=== PATIENT | male | born 1985 | race American Indian/Alaskan Native ===

== ENCOUNTER 2021-10-11 08:53 | Emergency (ER) | payer SELFPAY ==
[2021-10-11] MEDS ORDERED: SULFAMETHOXAZOLE/TRIMETHOPRIM 800/160MG DS TAB PO ONE (09:27)
[2021-10-11] MEDS ORDERED: ACETAMINOPHEN W/CODEINE 300-30 MG TAB PO ONE (09:27)
[2021-10-11] MEDS ORDERED: KETOROLAC 10 MG TAB PO ONE (09:27)
--- NOTE | 2021-10-11 09:41 | Emergency Department Report ---
Upper Extremity - HPI Chief Complaint: Extremity Injury, Upper Stated Complaint: SWOLLEN FINGER/WRIST PAIN Time Seen by Provider: 10/11/21 09:13 Upper Extremity: Right Ring Finger Occurred When: 3 Days Mechanism: Other (History of nail biting) Severity: severe Symptoms: Yes Pain with Movement, Yes Limited Range of Movement, Yes Swelling, No Deformity, No Numbness, No Weakness, No Bruising/Ecchymosis, No Laceration or Abrasion ED Review of Systems ROS: Stated complaint: SWOLLEN FINGER/WRIST PAIN Other details as noted in HPI Comment: All other systems reviewed and negative Constitutional: denies: chills, fever Respiratory: denies: shortness of breath, SOB with exertion, SOB at rest Cardiovascular: denies: chest pain, palpitations, dyspnea on exertion Gastrointestinal: denies: abdominal pain, nausea, vomiting Skin: denies: rash, lesions Neurological: denies: headache, weakness, numbness, paresthesias ED Past Medical Hx - Past Medical History Previous Medical History?: No - Medications Home Medications: Home Medications Medication Instructions Recorded Confirmed Last Taken Type Naproxen [Naprosyn] 500 mg PO BID #14 tab 10/11/21 Unknown Rx Sulfamethoxazole/Trimethoprim 1 each PO BID #14 tab 10/11/21 Unknown Rx [Bactrim DS TAB] Upper Extremity Exam - Exam General: Vital signs noted. No distress. Alert and acting appropriately. Head and Torso: No Neck Tenderness, No Chest/Lungs Abnormality, No Abdominal Tenderness, No Back Tenderness Shoulder Exam: Yes Normal Range of Motion in Shoulder, No Shoulder Tenderness, No Clavicle Tenderness, No Shoulder Deformity, No AC Joint Tenderness Forearm: No Forearm Tenderness, No Forearm Deformity Wrist: No Wrist Tenderness, No Normal ROM in Wrist, No Wrist Deformity, No Snu ffbox Tenderness Hand: Yes Digit Tenderness (Right ring finger), No Hand Tenderness, No Hand Deformity, No Normal ROM in Digit(s) (Right ring finger), No Digit(s) Deformity, No Tendon Dysfunction CMS Exam: Yes Normal Distal Pulses, Yes Normal Capillary Refill, Yes Normal Distal Sensation, No Broken Skin Hand L/R Back: 1 - Paronychia ED Course Vital Signs 10/11/21 08:58 Temperature 98.5 F Pulse Rate 60 Respiratory 18 Rate Blood Pressure 147/88 O2 Sat by Pulse 98 Oximetry - I & D Right Finger Type of Procedure: Simple Site: Right ring finger paronychia Blade Size: 19-gauge needle I & D Procedure: no betadine prep (Allergy to Betadine cleaned with alcohol) Progress: After nerve block, single needle stick to area around fingernail, and moderate amount of serosanguineous drainage expelled. Area cleaned and Band-Aid applied. Patient tolerated well. - Nerve Block Consent Obtained: verbal consent Time Out Performed: Yes Local Anesthetic Used: Lidocaine 1% Amount of anesthesia used: 3 Side: right Nerve Blocks: digital Procedure Successful: Yes Complications: none Patient Tolerated Procedure: well ED Medical Decision Making - Medical Decision Making 25-year-old black male with no past medical history presents to the emergency department for evaluation of pain and swelling to right scrotal wall for the pas t 3 days that is worsening. He states that he tried soaking in the tub but had no improvement. He denies fever, nausea, vomiting, and states the area is not draining. Exam consistent with right ring finger paronychia. Patient was given nerve block to finger and I&D performed proprius seizure no. Patient was discharged home with 7-day course of Bactrim and naproxen and advised to follow-up with primary care provider if no improvement or worsening symptoms. He verbalized understanding of and agreement with plan of care. Critical care attestation.: If time is entered above; I have spent that time in minutes in the direct care of this critically ill patient, excluding procedure time. ED Disposition Clinical Impression: Paronychia of right ring finger Disposition: HOME / SELF CARE / HOMELESS Is pt being admited?: No Does the pt Need Aspirin: No Condition: Stable Instructions: Paronychia, [id number] Additional Instructions: Take medications as prescribed. Follow-up with primary care provider if no improvement or worsening symptoms. Prescriptions: Sulfamethoxazole/Trimethoprim [Bactrim DS TAB] 1 each PO BID #14 tab Naproxen [Naprosyn] 500 mg PO BID #14 tab Referrals: OTONIEL RDZ MD [Referring] - 3-5 Days Forms: Work/School Release Form(ED) Time of Disposition: 09:41
[2021-10-11 09:47] VITALS: BP 153/91
== END 2021-10-11 10:08 | disposition home or self-care (01) ==
LOC: ED 08:53
DX: L03.011 Cellulitis of right finger (principal)
CPT/HCPCS: 99282